=== PATIENT | female | born 1940 | race Caucasian/White ===

== ENCOUNTER 2016-12-24 11:10 | Emergency (ER) | payer MEDICARE ==
[~2016-12-24] VITALS: Ht 165.1 cm; Wt 86.0 kg
[~2016-12-24 11:10] MED LIST: ASPI81TA82 PO; LEVO100T4 PO
[2016-12-24 11:22] VITALS: BP 160/91; PULSE 74; RESP 18; TEMP 98; O2SAT 96
[2016-12-24 11:27] VITALS: BP 160/91; PULSE 60; RESP 18; TEMP 98; O2SAT 96
[2016-12-24] MEDS ORDERED: ONDANSETRON HCL 4 MG/2 ML VIAL IVP ONE (11:30)
[2016-12-24] MEDS ORDERED: SODIUM CHLORIDE 0.9% FLUSH 10 ML FLUSH IVF PRN (11:30)
[2016-12-24] MEDS ORDERED: MECLIZINE HCL 25 MG TAB PO ONE (11:30)
[2016-12-24] MEDS ORDERED: LORazepam 2 MG/ML VIAL IV PUSH ONE (11:30)
[2016-12-24 11:32] VITALS: BP 144/67; PULSE 58; RESP 19; TEMP 98; O2SAT 96
[2016-12-24 11:58] LABS: BASOPHIL % 0.6 % (0.0-2.0); EOSINOPHIL % 0.6 % (0.0-4.0); HEMATOCRIT 33.8 % (35.0-46.0); HEMO FLAGS DIFF FINAL; LYMPH % 23.1 % (9.0-44.0); LYMPHOCYTE # 1.3 TH/MM3 (1.0-4.8); MEAN CELL VOLUME 91.8 FL (80.0-100.0); MEAN CORPUSCULAR HEMOGLOBIN 31.6 PG (27.0-34.0); MEAN CORPUSCULAR HGB CONC 34.4 % (32.0-36.0); MONO % 5.5 % (0.0-8.0); NEUT % 70.2 % (16.0-70.0); PLATELET COUNT 179 TH/MM3 (150-450); RED BLOOD COUNT 3.68 MIL/MM3 (4.00-5.30); WHITE BLOOD COUNT 5.6 TH/MM3 (4.0-11.0)
[2016-12-24 12:08] LABS: APTT (PATIENT) 23.3 SEC (24.3-30.1); PROTHROMBIN TIME - PATIENT 10.7 SEC (9.8-11.6)
[2016-12-24 12:28] LABS: BLOOD UREA NITROGEN 23 MG/DL (7-18); CHLORIDE 108 MEQ/L (98-107); GLOMERULAR FILTRATION RATE 55 ML/MIN (>89); MAGNESIUM 2.2 MG/DL (1.5-2.5); SODIUM (NA) 140 MEQ/L (136-145)
--- NOTE | 2016-12-24 12:28 | PD ---
HPI Chief Complaint: Syncope/Near-Syncope Time Seen by Provider: 11:25 Travel History International Travel<30 days: No Contact w/Intl Traveler<30days: No Traveled to known affect area: No History of Present Illness HPI The patient 76 years old and arrives by EMS. She had eaten breakfast this morning when she was seated and developed sudden onset of severe vertiginous dizziness. Any changing of position of the head has tended to worsen vertigo severity. Nausea reported. She did not vomit. The patient reports nearly losing consciousness however remained conscious since the onset of dizziness. She has a constant dizziness sensation in the ER. EMS reports heart rate on scene of 80 and a blood pressure of 130/86 with a finger stick glucose of 138 and 14 respirations per minute. No similar prior event. No chest pain or shortness of breath. No diaphoresis. Patient reports her normal state of health yesterday and today. No new or different medication or change in medication. No headache. No tinnitus or otalgia. PFSH Past Medical History Blood Disorders: No Cancer: No Cardiovascular Problems: Yes High Cholesterol: Yes COPD: Yes Cerebrovascular Accident: Yes Diabetes: No Endocrine: Yes Genitourinary: Yes (A LITTLE LEAKAGE) Immune Disorder: No Musculoskeletal: Yes (ARTHRITIS) Neurologic: No Psychiatric: No Reproductive: No Respiratory: Yes Thyroid Disease: Yes (hypo) Tetanus Vaccination: > 5 Years Influenza Vaccination: Yes Menopausal: Yes Tubal Ligation: Yes Past Surgical History Appendectomy: Yes Hysterectomy: Yes Other Surgery: Yes (TUBALIGATION, HYSTERECTOMY, APPENDECTOMY) Social History Alcohol Use: Yes (occ) Tobacco Use: No Substance Use: No Allergies-Medications (Allergen,Severity, Reaction): Coded Allergies: Erythromycins (Verified Allergy, Severe, 12/24/16) Sulfa (Verified Allergy, Severe, 12/24/16) Reported Meds & Prescriptions Reported Meds & Active Scripts Active Meclizine (Meclizine HCl) 25 Mg Tab 25 Mg PO TID PRN Ativan (Lorazepam) 1 Mg Tab 1 Mg PO Q6H PRN Macrobid (Nitrofurantoin Monoh/Nitrofur Macro) 100 Mg Cap 100 Mg PO BID 5 Days Aspir-81 (Aspirin) 81 Mg Tab 81 Mg PO DAILY Reported Levothyroxine 100 mcg (Levothyroxine Sodium) 100 Mcg Tab 1 Tab PO DAILY Review of Systems Except as stated in HPI: all other systems reviewed are Neg Physical Exam Narrative GENERAL: 76-year-old female pleasant well-nourished well-developed SKIN: Focused skin assessment warm/dry. HEAD: Atraumatic. Normocephalic. EYES: Pupils equal and round. No scleral icterus. No injection or drainage. No nystagmus vertical or horizontal. ENT: No nasal bleeding or discharge. Mucous membranes pink and moist. NECK: Trachea midline. No JVD. CARDIOVASCULAR: Regular rate and rhythm. No murmur appreciated. RESPIRATORY: No accessory muscle use. Clear to auscultation. Breath sounds equal bilaterally. GASTROINTESTINAL: Abdomen soft, non-tender, nondistended. Hepatic and splenic margins not palpable. MUSCULOSKELETAL: No obvious deformities. No clubbing. No cyanosis. No edema. NEUROLOGICAL: Awake and alert. No obvious cranial nerve deficits. Motor grossly within normal limits. Normal speech. Cerebellar function normal. PSYCHIATRIC: Appropriate mood and affect; insight and judgment normal. Data Data Last Documented VS Vital Signs Date Time Temp Pulse Resp B/P Pulse Ox O2 Delivery O2 Flow Rate FiO2 12/24/16 13:42 66 19 144/76 96 Room Air 12/24/16 11:32 98.0 Vital signs reviewed Orders Electrocardiogram (12/24/16 11:30) Basic Metabolic Panel (Bmp) (12/24/16 11:30) Complete Blood Count With Diff (12/24/16 11:30) Magnesium (Mg) (12/24/16 11:30) Ckmb (Isoenzyme) Profile (12/24/16 11:30) Troponin I (12/24/16 11:30) Act Partial Throm Time (Ptt) (12/24/16 11:30) Prothrombin Time / Inr (Pt) (12/24/16 11:30) Urinalysis - C+S If Indicated (12/24/16 11:30) Ct Brain W/O Iv Contrast(Rout) (12/24/16 11:30) Ecg Monitoring (12/24/16 11:30) Iv Access Insert/Monitor (12/24/16 11:30) Oximetry (12/24/16 11:30) Meclizine (Antivert) (12/24/16 11:30) Ondansetron Inj (Zofran Inj) (12/24/16 11:30) Sodium Chloride 0.9% Flush (Ns Flush) (12/24/16 11:30) Lorazepam Inj (Ativan Inj) (12/24/16 11:30) CKMB (12/24/16 11:35) CKMB% (12/24/16 11:35) Sodium Chlor 0.9% 1000 Ml Inj (Ns 1000 M (12/24/16 13:30) Urine Culture (12/24/16 13:10) Nitrofurantoin Monohyd Macrocr (Macrobid (12/24/16 14:00) Admit Order (Ed Use Only) (12/24/16 14:07) Labs Laboratory Tests Test 12/24/16 12/24/16 11:35 13:10 White Blood Count 5.6 TH/MM3 Red Blood Count 3.68 MIL/MM3 Hemoglobin 11.6 GM/DL Hematocrit 33.8 % Mean Corpuscular Volume 91.8 FL Mean Corpuscular Hemoglobin 31.6 PG Mean Corpuscular Hemoglobin 34.4 % Concent Red Cell Distribution Width 13.0 % Platelet Count 179 TH/MM3 Mean Platelet Volume 8.4 FL Neutrophils (%) (Auto) 70.2 % Lymphocytes (%) (Auto) 23.1 % Monocytes (%) (Auto) 5.5 % Eosinophils (%) (Auto) 0.6 % Basophils (%) (Auto) 0.6 % Neutrophils # (Auto) 4.0 TH/MM3 Lymphocytes # (Auto) 1.3 TH/MM3 Monocytes # (Auto) 0.3 TH/MM3 Eosinophils # (Auto) 0.0 TH/MM3 Basophils # (Auto) 0.0 TH/MM3 CBC Comment DIFF FINAL Differential Comment Prothrombin Time 10.7 SEC Prothromb Time International 1.0 RATIO Ratio Activated Partial 23.3 SEC Thromboplast Time Sodium Level 140 MEQ/L Potassium Level 4.5 MEQ/L Chloride Level 108 MEQ/L Carbon Dioxide Level 24.0 MEQ/L Anion Gap 8 MEQ/L Blood Urea Nitrogen 23 MG/DL Creatinine 0.98 MG/DL Estimat Glomerular Filtration 55 ML/MIN Rate Random Glucose 103 MG/DL Calcium Level 8.8 MG/DL Magnesium Level 2.2 MG/DL Total Creatine Kinase 636 U/L Creatine Kinase MB 2.4 NG/ML Creatine Kinase MB % 0.4 % Troponin I LESS THAN 0.02 NG/ML Urine Color YELLOW Urine Turbidity HAZY Urine pH 5.5 Urine Specific [place] 1.007 Urine Protein NEG mg/dL Urine Glucose (UA) NEG mg/dL Urine Ketones NEG mg/dL Urine Occult Blood SMALL Urine Nitrite NEG Urine Bilirubin NEG Urine Urobilinogen LESS THAN 2.0 MG/DL Urine Leukocyte Esterase LARGE Urine RBC 1 /hpf Urine WBC 12 /hpf Urine Squamous Epithelial 1 /hpf Cells Urine Bacteria MANY /hpf Urine Mucus FEW /lpf Microscopic Urinalysis Comment CULTURE INDICATED MDM Medical Decision Making Medical Screen Exam Complete: Yes Emergency Medical Condition: Yes Medical Record Reviewed: Yes Differential Diagnosis Central vertigo, peripheral vertigo, electrolyte imbalance, anemia, arrhythmia, lightheadedness Narrative Course EKG: Sinus, rate 63, normal axis intervals CBC & BMP Diagram 12/24/16 11:35 Total creatine kinase 636 Tn < 0.02 UA: UTI present Last [address] 12/24/16 1130 Signed Impressions: Service Date/Time: Monday, December 24, 2016 12:07 - CONCLUSION: No acute disease. Yosef Tolliver MD Patient reiterates some concern about generalized fatigue. We discussed mild prerenal state as well as WBCs and leukocyte esterase on urinalysis positive wheezes with a urinary tract infection is potential etiologies. Certainly the Ativan and meclizine could account for her state of fatigue as well. Patient will go home with her family member by taxi. The patient is resting comfortably and feels better, is alert and in no distress. The patients results and examination findings were discussed. The repeat examination is unremarkable and benign. The history, exam, diagnostic testing, and current condition do not suggest any significant pathology to warrant further testing, continued ED treatment, admission, or surgical evaluation at this point. The vital signs have been stable. The patient does not have uncontrollable pain, intractable vomiting, or other significant symptoms. The patient's condition is stable and appropriate for discharge. The patient will pursue further outpatient evaluation with a primary care physician or other designated or consulting physician as indicated in the discharge instructions. The patient expressed understanding and was agreeable with this plan. Diagnosis Primary Impression: UTI (urinary tract infection) Qualified Code: N30.00 - Acute cystitis without hematuria Additional Impression: Vertigo Referrals: Aldo Macias MD 2 days Additional Instructions: You have a choice when it comes to health care, and we are glad that you chose [facility]. Hopefully, we have met your expectations on today's visit. You are welcome to return to [facility] at any time, as we are committed to meeting the health care needs of our community. Med/Other Pt SpecificInfo: Prescription(s) given Scripts Meclizine 25 Mg Tab25 Mg PO TID PRN (VERTIGO) #30 TAB Ref 0 Prov:Elliot Gordon MD 12/24/16 Lorazepam (Ativan)1 Mg Tab1 Mg PO Q6H PRN (VERTIGO) #10 TAB Ref 0 Prov:Elliot Gordon MD 12/24/16 Nitrofurantoin Monohydrate Macrocrystals (Macrobid)100 Mg Qgt407 Mg PO BID 5 Days Ref 0 Prov:Elliot Gordon MD 12/24/16 Disposition: 01 DISCHARGE HOME Condition: Stable Elliot Gordon MD Dec 24, 2016 12:28
[2016-12-24 12:29] LABS: ANION GAP 8 MEQ/L (5-15); CREATINE KINASE 636 U/L (26-192); POTASSIUM 4.5 MEQ/L (3.5-5.1)
--- NOTE | 2016-12-24 12:32 | RADRPT ---
EXAM DATE/TIME: 12/24/2016 12:07 [place] COMPARISON: CT BRAIN W/O CONTRAST, July 05, 2014, 14:54. INDICATIONS : Dizziness. RADIATION DOSE: 42.12 CTDIvol (mGy) MEDICAL HISTORY : Stroke. Hypertension. SURGICAL HISTORY : Hysterectomy. ENCOUNTER: Initial ACUITY: 1 day PAIN SCALE: 0/10 LOCATION: cranial TECHNIQUE: Multiple contiguous axial images were obtained of the head. Using automated exposure control and adj ustment of the mA and/or kV according to patient size, radiation dose was kept as low as reasonably a chievable to obtain optimal diagnostic quality images. DICOM format image data is available electro nically for review and comparison. FINDINGS: CEREBRUM: The ventricles are normal for age. No evidence of midline shift, mass lesion, hemorrhage or acute in farction. No extra-axial fluid collections are seen. POSTERIOR FOSSA: The cerebellum and brainstem are intact. The 4th ventricle is midline. The cerebellopontine angle i s unremarkable. EXTRACRANIAL: The visualized portion of the orbits is intact. SKULL: The calvaria is intact. No evidence of skull fracture. CONCLUSION: No acute disease. Yosef Tolliver MD on December 24, 2016 at 12:28 Board Certified Radiologist. This report was verified electronically.
[2016-12-24 12:42] LABS: CKMB 2.4 NG/ML (0.5-3.6)
[2016-12-24] MEDS ORDERED: SODIUM CHLOR 0.9% 1000 ML INJ 1,000 ML IV ONE (13:30)
[2016-12-24 13:37] LABS: BACTERIA, URINE MANY /hpf; BLOOD, URINE SMALL (NEG); COMMENT (UR) CULTURE INDICATED; CULTURE IF INDICATED CULTURE INDICATED; GLUCOSE,URINE NEG (NEG); KETONE, URINE NEG (NEG); MUCUS URINE FEW /lpf (OCC); NITRITE,URINE NEG (NEG); PH, URINE 5.5 (5.0-8.5); SQUAMOUS EPITHELIAL CELL URINE 1 /hpf (0-5); URINE COLOR YELLOW (YELLW/STRAW)
[2016-12-24 13:42] VITALS: BP 144/76; PULSE 66; RESP 19; O2SAT 96
[2016-12-24] MEDS ORDERED: MACR100C2 PO (13:55)
[2016-12-24] MEDS ORDERED: MECL-62 PO (13:56)
[2016-12-24] MEDS ORDERED: LORA-474 PO (13:56)
[2016-12-24] MEDS ORDERED: NITROFURANTOIN MONOHYD MACROCR 100 MG CAP PO ONE (14:00)
[2016-12-24 15:30] VITALS: BP 154/72
--- NOTE | 2016-12-25 11:53 | EKG ---
Date Performed: 12/24/2016 Time Performed: 11:30:32 PTAGE: 76 years EKG: Sinus rhythm Since previous tracing, no significant change noted NORMAL ECG PREVIOUS TRACING : 07/05/2014 14.10 DOCTOR: Stu Darby Interpretating Date/Time 12/25/2016 11:52:10
== END 2016-12-24 15:36 | disposition home or self-care (01) ==
LOC: NEPE 11:10 → NEDA 14:08 → UNDOADMIN 14:08 → NEPE 15:36
DX: N39.0 Urinary tract infection, site not specified (principal); R42 Dizziness and giddiness; R53.83 Other fatigue; R06.2 Wheezing; E78.00 Pure hypercholesterolemia, unspecified; J44.9 Chronic obstructive pulmonary disease, unspecified; M19.90 Unspecified osteoarthritis, unspecified site; E03.9 Hypothyroidism, unspecified; Z86.73 Personal history of transient ischemic attack (TIA), and cerebral infarction without residual deficits
CPT/HCPCS: 70450; 80048; 81001; 82550; 82552; 83735; 84484; 85025; 85610; 85730; 87077; 87086; 87186; 93005; 96361; 96374; 96375; 99285; J2060; J2405; J7030